=== PATIENT | female | born 1985 | race African-American/Black ===

== ENCOUNTER 2016-08-28 12:01 | Emergency (ER) | payer MEDICAID ==
[2016-08-28] MEDS ORDERED: ACETAMINOPHEN 325 MG TABLET PO ONE (13:09)
--- NOTE | 2016-08-28 15:13 | ER Document Report ---
ED General - General Chief Complaint: Cough Stated Complaint: CHEST PAIN Mode of Arrival: Ambulatory Information source: Patient Notes: 30 y/o F presents to the ED complaining of cough and congestion over the last 2 days. Patient states developed sore throat, cough, congestion 2 days ago. States sore throat has resolved but cough and congestion is persistent. States cough is productive with small amount of whitish sputum. Denies fever, chest pain, shortness of breath, nausea or vomiting. Patient reports her toddler niece had similar symptoms last week. Patient states is approximately 5 1/2 months up-to-date on visits, and denies pelvic pain or cramping, vaginal bleeding or discharge, dysuria or flank pain. TRAVEL OUTSIDE OF THE [place] IN LAST 30 DAYS: No - HPI Onset/Duration: Persistent Severity: Mild Pain Level: Denies Similar symptoms previously: Yes Recently seen / treated by doctor: No - Related Data Allergies/Adverse Reactions: No Known Allergies Allergy (Verified 08/28/16 12:11) Past Medical History - General Information source: Patient - Social History Smoking Status: Never Smoker Chew tobacco use (# tins/day): No Frequency of alcohol use: None Drug Abuse: None Lives with: Family Family History: Reviewed & Not Pertinent Patient has suicidal ideation: No Patient has homicidal ideation: No - Medical History Medical History: Negative Renal/ Medical History: Denies: Hx Peritoneal Dialysis Past Surgical History: Reports: Hx Dilation and Curettage, Hx Gynecologic Surgery - D&C - Immunizations Hx Diphtheria, Pertussis, Tetanus Vaccination: Yes Review of Systems - Review of Systems Constitutional: No symptoms reported EENT: See HPI Cardiovascular: No symptoms reported Respiratory: See HPI Gastrointestinal: No symptoms reported Genitourinary: No symptoms reported Female Genitourinary: No symptoms reported, See HPI, Musculoskeletal: No symptoms reported Skin: No symptoms reported Hematologic/Lymphatic: No symptoms reported Neurological/Psychological: No symptoms reported -: Yes All other systems reviewed and negative Physical Exam - Vital signs Vitals: Temp Pulse Resp BP Pulse Ox 98.8 F 115 H 20 113/50 L 98 08/28/16 12:08 08/28/16 12:08 08/28/16 12:08 08/28/16 12:08 08/28/16 12:08 Interpretation: Normal - General General appearance: Appears well, Alert In distress: None - HEENT Head: Normocephalic, Atraumatic Eyes: Normal Conjunctiva: Normal Pupils: PERRL Ears: Normal External canal: Normal Tympanic membrane: Normal. No: Injected, Perforation, Purulent effusion Sinus: Normal. No: Tenderness Nasal: Clear rhinorrhea. No: Epistaxis, Purulent discharge Mouth/Lips: Normal Mucous membranes: Normal, Moist Pharynx: Normal. No: Blood in hypopharynx, Erythema, Exudate, Peritonsillar abscess, Post nasal drainage, Retropharyngeal abscess, Tonsillar hypertrophy, Uvular edema, Potential airway comprom., Other Neck: Normal. No: Anterior cervical chain, Posterior cervical chain, Lymphadenopathy, Meningismus, Subcutaneous emphysema - Respiratory Respiratory status: No respiratory distress Chest status: Nontender Breath sounds: Normal Chest palpation: Normal - Cardiovascular Rhythm: Regular Heart sounds: Normal auscultation Murmur: No Pulses: Normal: Radial, Posterior tibial, Dorsalis pedis Normal capillary refill: Yes - Abdominal Inspection: Normal, Gravid female Distension: No distension Bowel sounds: Normal Tenderness: Nontender. No: Tender, McBurney's point, Navarro's sign, Guarding, Rebound, Other Organomegaly: No organomegaly - Back Back: Normal, Nontender - Extremities General upper extremity: Normal inspection, Nontender, Normal color, Normal ROM , Normal temperature General lower extremity: Normal inspection, Nontender, Normal color, Normal ROM , Normal temperature, Normal weight bearing. No: Ami's sign - Neurological Neuro grossly intact: Yes Cognition: Normal Orientation: AAOx4 [place] Coma Scale Eye Opening: Spontaneous [place] Coma Scale Verbal: Oriented Gabriella Coma Scale Motor: Obeys Commands Gabriella Coma Scale Total: 15 Speech: Normal Motor strength normal: LUE, RUE, LLE, RLE Sensory: Normal - Psychological Associated symptoms: Normal affect, Normal mood - Skin Skin Temperature: Warm Skin Moisture: Dry Skin Color: Normal Course - Re-evaluation Re-evalutation: 08/28/16 15:30 Patient hemodynamically stable, in no distress, afebrile, nontoxic, and appears well-hydrated. Tolerating oral fluids without difficulty or vomiting. Chest x- ray unremarkable and rapid influenza A/B negative. Patient appears so for discharge and no suggestion of emergent infectious, inflammatory, vascular etiology at this time and agrees with home care, follow-up with PCP, and ED return precautions. - Vital Signs Vital signs: Temp Pulse Resp BP Pulse Ox 98.6 F 69 20 107/58 L 99 08/28/16 15:37 08/28/16 15:37 08/28/16 15:37 08/28/16 15:37 08/28/16 15:37 - Diagnostic Test Radiology reviewed: Image reviewed, Reports reviewed Discharge - Discharge Clinical Impression: URI (upper respiratory infection) Qualifiers: URI type: unspecified URI Qualified Code(s): J06.9 - Acute upper respiratory infection, unspecified Condition: Stable Disposition: HOME, SELF-CARE Additional Instructions: UPPER RESPIRATORY ILLNESS: You have a viral infection of the respiratory passages -- a "cold." This common infection causes nasal congestion, drainage, and often sore throat and cough. It is highly contagious. The disease usually lasts about 10 to 14 days. There is no "cure" for the viral infection -- it must run its course. If there is a complication, such as bacterial infection in the nose, sinuses, middle ear, or bronchial tubes, antibiotics may be required. The antibiotics won't affect the virus. Drink plenty of fluids. A humidifier may help. An expectorant medication or decongestant may make you more comfortable. Use acetaminophen or ibuprofen for fever or aches. See the doctor if fever persists over two days, if there is any significant worsening of your symptoms, or if you simply fail to improve as expected. USE OF ACETAMINOPHEN (Tylenol): Acetaminophen may be taken for pain relief or fever control. It's much safer than aspirin, offering a wider range of "safe" dosages. It is safe during . Some brand names are Tylenol, Panadol, Datril, Anacin 3, Tempra, and Liquiprin. Acetaminophen can be repeated every four hours. The following are maximum recommended dosages: >89 pounds or adults 650 mg to 900 mg Acetaminophen can be repeated every four hours. Maximum dose not to exceed 4000 mg a day. Home self care: -Rest, hydration (8-10 glasses/day) -Steamy shower -Apply warm facial packs -Nasal saline irrigation lavage -Sleep with head elevated -Avoid cigarette smoke -Use of humidifier/vaporizer -Balanced nutrition FOLLOW-UP: Drink plenty of fluids, at least 2 to 3 liters of water per day. Follow-up with your primary care provider in 1-2 days. Return to the Emergency Department for any worsening symptoms or concerns. Forms: Return to Work Referrals: TRICIA HO MD [Primary Care Provider] - Follow up tomorrow
[2016-08-28 15:41] VITALS: BP 107/58
== END 2016-08-28 15:40 | disposition home or self-care (01) ==
LOC: ER 12:01
DX: O99.519 Diseases of the respiratory system complicating pregnancy, unspecified trimester (principal); J06.9 Acute upper respiratory infection, unspecified; J34.89 Other specified disorders of nose and nasal sinuses; O26.899 Other specified pregnancy related conditions, unspecified trimester; R05 Cough; Z3A.00 Weeks of gestation of pregnancy not specified
CPT/HCPCS: 99285; 87804; 71020; J3490

== ENCOUNTER 2016-10-08 09:40 | Outpatient (CLI) | payer MEDICAID ==
[2016-10-08 10:19] LABS: APPEARANCE,URINE CLEAR; BILIRUBIN,URINE NEGATIVE (NEGATIVE); GLUCOSE, URINE NEGATIVE (NEGATIVE); KETONES,URINE NEGATIVE (NEGATIVE); LEUKOCYTE ESTERASE,URINE NEGATIVE (NEGATIVE); NITRITE,URINE NEGATIVE (NEGATIVE); PROTEIN,URINE NEGATIVE (NEGATIVE); URINE SPECIFIC GRAVITY 1.009; UROBILINOGEN,URINE NEGATIVE mg/dL (<2.0)
[2016-10-08 10:37] LABS: URINE BARBITURATES SCREEN NEGATIVE; URINE OPIATES LOW NEGATIVE; URINE PHENCYCLIDINE SCREEN NEGATIVE
[2016-10-08 10:39] LABS: URINE METHADONE SCREEN NEGATIVE
--- NOTE | 2016-10-08 12:01 | L&D Flow Sheet ---
LD Flowsheet Datetime Report Generated by CPN: 10/08/2016 12:00 Datetime: 10/08/2016 11:07 NBP Sys/Cristy/Mean (mmHg): 94 (QS system process) : 55 (QS system process) : 69 (QS system process) Pulse: 90 (QS system process) Datetime: 10/08/2016 10:19 Pain Scale: 2 (Dolores Lin RN) Pain Presence: Intermittent (Dolores Lin RN) Pain Type: Cramping (Dolores Lin RN) Pain Location: Abdomen (Dolores Lin RN) Pain Goal: 0 (Dolores Lin RN) Vaginal Bleeding: Scant (Dolores Lin RN) Level of Consciousness: Fully Conscious (Dolores Lin RN) DTR's/Clonus: DTRs 2+; No Clonus (Dolores Lin RN) Headache: Denies (Dolores Lin RN) Breath Sounds, Left: Clear and Equal (Dolores Lin RN) Breath Sounds, Right: Clear and Equal (Dolores Lin RN) Nausea/Vomiting: Present (Dolores Lin RN) RUQ Epigastric Pain: Denies (Dolores Lin RN) Datetime: 10/08/2016 10:15 Temperature (F): 98.7 (Dolores Lin RN) Temperature (C): 37.1 (QS system process) Datetime: 10/08/2016 10:13 NBP Sys/Cristy/Mean (mmHg): 98 (QS system process) : 56 (QS system process) : 69 (QS system process) Pulse: 91 (QS system process) Patient Position/Activity: Left Lateral (Dolores Lin RN) Datetime: 10/08/2016 10:10 Comments: Monitors applied, explained to pt. (Dolores Lin RN)
== END 2016-10-08 12:45 | disposition home or self-care (01) ==
LOC: LC 09:40
PROVIDERS: ATTEND Obstetrics & Gynecology
PROC: 4A1HXCZ Monitoring of Products of Conception, Cardiac Rate, External Approach (ICD-10-PCS; principal; 2016-10-08)
DX: O47.02 False labor before 37 completed weeks of gestation, second trimester (principal); Z3A.26 26 weeks gestation of pregnancy
CPT/HCPCS: 76815; 80307; 81001

== ENCOUNTER 2017-01-10 16:11 | Inpatient (IN) | payer MEDICAID ==
[2017-01-10 16:49] LABS: APPEARANCE,URINE SLIGHTLY-CLOUDY; BILIRUBIN,URINE NEGATIVE (NEGATIVE); GLUCOSE, URINE NEGATIVE (NEGATIVE); KETONES,URINE NEGATIVE (NEGATIVE); LEUKOCYTE ESTERASE,URINE NEGATIVE (NEGATIVE); NITRITE,URINE NEGATIVE (NEGATIVE); PROTEIN,URINE NEGATIVE (NEGATIVE); URINE SPECIFIC GRAVITY 1.008; UROBILINOGEN,URINE NEGATIVE mg/dL (<2.0)
[2017-01-10 16:53] LABS: AMNISURE (ROM) NEGATIVE (NEGATIVE)
[2017-01-10 17:06] LABS: URINE BARBITURATES SCREEN NEGATIVE; URINE METHADONE SCREEN NEGATIVE; URINE OPIATES LOW NEGATIVE; URINE PHENCYCLIDINE SCREEN NEGATIVE
[2017-01-10] MEDS ORDERED: RINGERS SOLUTION,LACTATED 1,000 ML IV PRN (17:31)
[2017-01-10] MEDS ORDERED: OXYTOCIN/NORMAL SALINE 1,000 ML IV PRN (17:31)
[2017-01-10] MEDS ORDERED: RINGERS SOLUTION,LACTATED 300 ML IV ONE (17:31)
[2017-01-10] MEDS ORDERED: LIDOCAINE 1% INJ-PF (10 MG/ML) 30 ML SDV ONE (17:56)
[2017-01-10] MEDS ORDERED: MISOPROSTOL 0.2 MG TABLET ONE (17:56)
[2017-01-10] MEDS ORDERED: OXYTOCIN/NORMAL SALINE 20 UNIT/1,000 ML RTUINJ ONE (17:57)
[2017-01-10 18:05] LABS: ABSOLUTE BASOPHILS # (AUTO) 0.1 10^3/uL (0.0-0.2); ABSOLUTE EOSINOPHILS # (AUTO) 0.2 10^3/uL (0.0-0.6); ABSOLUTE LYMPHOCYTES (AUTO) 2.4 10^3/uL (0.5-4.7); ABSOLUTE MONOCYTES (AUTO) 0.9 10^3/uL (0.1-1.4); ABSOLUTE NEUT (AUTO) 8.9 10^3/uL (1.7-8.2); BASOPHILS % (AUTO) 0.5 % (0-2); EOSINOPHILS % (AUTO) 1.4 % (0-6); HEMATOCRIT 27.3 % (36.0-47.0); HEMOGLOBIN 8.8 g/dL (12.0-15.5); HGB HCT DIFFERENCE -0.9; LYMPHOCYTES % (AUTO) 19.3 % (13-45); MEAN CORPUSCULAR HGB CONC 32.1 g/dL (32.0-36.0); MEAN CORPUSCULAR VOLUME 72 fl (80-97); MONOCYTES % (AUTO) 7.6 % (3-13); RED BLOOD COUNT 3.81 10^6/uL (3.72-5.28); RED CELL DISTRIBUTION WIDTH 16.8 % (11.5-14.0); SEGMENTED NEUTROPHILS % (AUTO) 71.2 % (42-78); WHITE BLOOD COUNT 12.5 10^3/uL (4.0-10.5)
[2017-01-11] MEDS ORDERED: ACETAMINOPHEN 650 MG SUPP.RECT PR PRN (06:26)
[2017-01-11] MEDS ORDERED: PROMETHAZINE HCL 25 MG TABLET PO PRN (06:26)
[2017-01-11] MEDS ORDERED: OXYTOCIN/NORMAL SALINE 1,000 ML IV PRN (06:26)
[2017-01-11] MEDS ORDERED: MAGNESIUM HYDROXIDE SUSP 30 ML UDCUP PO PRN (06:26)
[2017-01-11] MEDS ORDERED: MEASLES,MUMPS&RUBELLA VACC/PF 0.5 ML VIAL SUBCUT PRN (06:26)
[2017-01-11] MEDS ORDERED: BENZOCAINE/MENTHOL AEROSOL SPRAY 56 ML TOP PRN (06:26)
[2017-01-11] MEDS ORDERED: DIPHENHYDRAMINE HCL 25 MG CAPSULE PO PRN (06:26)
[2017-01-11] MEDS ORDERED: DIPH/PERTUSS(ACELL)/TETANUS VAC/PF 0.5 ML SYR (>=10YO) IM PRN (06:26)
[2017-01-11] MEDS ORDERED: DIBUCAINE 1% OINTMENT 28 GM TP PRN (06:26)
[2017-01-11] MEDS ORDERED: ACETAMINOPHEN WITH CODEINE #3 TABLET PO PRN ×2 (06:26)
[2017-01-11] MEDS ORDERED: PROMETHAZINE HCL INJ 25 MG/1 ML VIAL IV PRN (06:26)
[2017-01-11] MEDS ORDERED: NA PHOS,M-B/NA PHOS,DI-BA (ADULT) 133 ML ENEMA PR PRN (06:26)
[2017-01-11] MEDS ORDERED: PROMETHAZINE HCL 25 MG SUPP.RECT PR PRN (06:26)
[2017-01-11] MEDS ORDERED: ZOLPIDEM TARTRATE 5 MG TABLET PO PRN (06:26)
[2017-01-11] MEDS ORDERED: PSEUDOEPHEDRINE HCL 30 MG TABLET PO PRN (06:26)
[2017-01-11] MEDS ORDERED: GLYCERIN/WITCH HAZEL LEAF 1 EACH MED..PAD TP PRN (06:26)
[2017-01-11] MEDS ORDERED: MISOPROSTOL 0.2 MG TABLET PR PRN (06:26)
[2017-01-11] MEDS ORDERED: OXYTOCIN/NORMAL SALINE 20 UNIT/1,000 ML RTUINJ ONE (07:21)
[2017-01-11] MEDS: IBUPROFEN 800 MG TABLET PO SCH ×2 (07:56→22:01)
[2017-01-11] MEDS ORDERED: IBUPROFEN 800 MG TABLET ONE (07:58)
[2017-01-11] MEDS ORDERED: CEFAZOLIN 2 GM/D5W RTU 2 GM/50 ML RTUPB IV ONE (08:55)
[2017-01-11] MEDS ORDERED: CEFAZOLIN 2 GM/D5W RTU 50 ML IV ONE (08:56)
--- NOTE | 2017-01-11 09:07 | Admission Physical ---
Datetime Report Generated by CPN: 01/11/2017 09:07 CURRENT ADMISSION Chief Complaint: Other Indication for Induction: Oligohydramnios Admit Impression- Other: RUSSEL of 5 cm Admit Plan: Admit to Unit; Initiate Labor Induction Protocol ALLERGIES Medication Allergies: No Medication Allergies: No Known Allergies (01/10/2017) Medication Allergies: No Known Allergies (08/28/2016) Medication Allergies: No Known Allergies (06/24/2016) Medication Allergies: No Known Allergies (01/31/2011) Latex: No Latex Allergies Food Allergies: None Environmental Allergies: None OBSTETRICAL HISTORY EDC: 01/09/2017 00:00 : 7 Para: 4 Term: 3 : 1 SAB: 2 IAB: 0 Ectopic: 0 Livin Cesareans: 0 VBACs: 0 Multiple Births: 0 Gestational Diabetes: No Rh Sensitization: No Incompetent Cervix: No ELDA: No Infertility: No ART Treatment: No Uterine Anomaly: No IUGR: No Hx Previous C/S: No Macrosomia: No Hx Loss/Stillborn: No PIH: No Hx : No Placenta Previa/Abruption: No Depression/PP Depression: No PTL/PROM: Yes Post Hemorrhage: No Current Procedures: Ultrasound; NST Obstetrical History Comments: G1 - at 33 weeks, PTL (2002) G2 - at 39 weeks, (2005) G3 - SAB at 12 weeks (2007) G4 - at 39 weeks (2009) G5 - at 41 weeks (2010) G6 - SAB at 13 weeks (2015) G7 - current SEE RECORDS Alcohol: No Marijuana : No Cocaine: No Other Illicit Drugs: No Cigarettes: Former Smoker. [id number] MEDICAL HISTORY Diabetes: No Blood Transfusion: No Pulmonary Disease (Asthma, TB): No Breast Disease: No Hypertension: No Plastics Fitter Surgery: No Heart Disease: No Hosp/Surgery: Yes Autoimmune Disorder: No Anesthetic Complications: No Kidney Disease: No Abnormal Pap Smear: No Neuro/Epilepsy: No Psychiatric Disorders: No Other Medical Diseases: Yes Hepatitis/Liver Disease: No Significant Family History: No Varicosities/Phlebitis: No Trauma/Violence : No Thyroid Dysfunction: No Medical History Comments: D_C in 2007, sickle cell trait INFECTIOUS HISTORY Gonorrhea: No Genital Herpes: No Chlamydia: No Tuberculosis: No Syphilis: No Hepatitis: No HIV/AIDS Exposure: No Rash or Viral Illness: No HPV: No PHYSICAL EXAM General: Normal HEENT: Normal Neurologic: Normal Thyroid: Normal Heart: Normal Lungs: Normal Breast: Deferred Back: Normal Abdomen: Normal Genitourinary Exam: Normal Extremities: Normal DTRs: Normal Pelvic Type: Adequate Vital Signs: Reviewed VAGINAL EXAM Dilatation: 4 Effacement: 80 Station: 0 MEMBRANES Pooling: Negative Membranes: Intact FETUS A EGA: 40.1 Monitoring: External US FHR- Baseline: 160 Variability: Minimal - Undetectable to <=5bpm Decelerations: None Presentation- Other: vtx Admit Comment: options considered. the pt preferred delivery. PLANS FOR LABOR AND DELIVERY Labor and Delivery: None Pain Management: Natural Feeding Preference: Breast Benefit of Breast Feed Discussed: Yes Circumcision: Yes INFORMED CONSENT Signature: with User ID: [email or web address]
[2017-01-11] MEDS: FAMOTIDINE 20 MG TABLET PO SCH ×2 (09:44→22:01)
[2017-01-11] MEDS: DOCUSATE SODIUM 100 MG CAPSULE PO SCH ×2 (09:44→18:24)
[2017-01-11] MEDS: FERROUS SULFATE 325 MG TABLET PO SCH ×2 (09:45→18:24)
[2017-01-11] MEDS: PRENATAL VITAMIN W-O CA NO5/FE FUMARATE/FA CAPSULE PO SCH (09:45)
[2017-01-11] MEDS: SENNOSIDES/DOCUSATE 8.6-50 MG 1 EACH TABLET PO SCH (09:45)
[2017-01-12] MEDS: IBUPROFEN 800 MG TABLET PO SCH ×3 (05:09→21:22)
[2017-01-12 07:05] LABS: HEMATOCRIT 24.4 % (36.0-47.0); HEMOGLOBIN 8.2 g/dL (12.0-15.5); HGB HCT DIFFERENCE 0.2; MEAN CORPUSCULAR HEMOGLOBIN 23.9 pg (27.0-33.4); MEAN CORPUSCULAR HGB CONC 33.4 g/dL (32.0-36.0); MEAN CORPUSCULAR VOLUME 72 fl (80-97); RED BLOOD COUNT 3.42 10^6/uL (3.72-5.28); RED CELL DISTRIBUTION WIDTH 16.9 % (11.5-14.0); WHITE BLOOD COUNT 12.7 10^3/uL (4.0-10.5)
[2017-01-12] MEDS: FERROUS SULFATE 325 MG TABLET PO SCH ×2 (09:11→17:59)
[2017-01-12] MEDS: SENNOSIDES/DOCUSATE 8.6-50 MG 1 EACH TABLET PO SCH (09:11)
[2017-01-12] MEDS: PRENATAL VITAMIN W-O CA NO5/FE FUMARATE/FA CAPSULE PO SCH (09:11)
[2017-01-12] MEDS: FAMOTIDINE 20 MG TABLET PO SCH ×2 (09:11→21:21)
[2017-01-12] MEDS: DOCUSATE SODIUM 100 MG CAPSULE PO SCH ×2 (09:11→17:59)
--- NOTE | 2017-01-12 12:33 | PDOC PROGRESS REPORT ---
Subjective-OB Subjective: Post Delivery Day:1 31 year old s/p ppd1. Ambulating, voiding and without difficulty. Denies any needs at this time Physical Exam (OB) Vital Signs: Temp Pulse Resp BP Pulse Ox 98.2 F 75 16 111/63 100 01/12/17 08:07 01/12/17 08:07 01/12/17 08:07 01/12/17 08:07 01/12/17 08:07 Intake & Output 01/11/17 01/12/17 01/13/17 06:59 06:59 06:59 Weight 91.3 kg - General General Appearance: Appears well In distress: None - PIH/Pre-Eclampsia Clonus: Negative - Episiotomy/Laceration Site Condition: Well Approximated - Lochia Lochia Amount: Small 10-25 ml Lochia Color: Rubra/Red - Abdomen Hernia Present: No Fundal Description: Firm, Midline Fundal Height: u/u - u/2 - Respiratory Respiratory Status: No respiratory distress - Extremities Upper extremity: Normal inspection Lower extremities: Normal inspection - Psychological Associated symptoms: Normal affect, Normal mood - bonding well with baby Objective-Diagnostic Laboratory: 01/12/17 06:39 01/12/17 06:39 WBC 12.7 H RBC 3.42 L Hgb 8.2 L Hct 24.4 L MCV 72 L MCH 23.9 L MCHC 33.4 RDW 16.9 H Plt Count 316 Assessment and Plan(PN) - Assessment and Plan (1) Vaginal delivery Is this a current diagnosis for this admission?: YesPlan: continue stay (2) Anemia Qualifiers: Other causes of anemia: other cause, not classified Is this a current diagnosis for this admission?: YesPlan: iron supplementation - Time Spent with Patient Time with patient: 15-25 minutes Medications reviewed and adjusted accordingly: Yes - Disposition Anticipated Discharge: Home Within: within 24 hours
[2017-01-13] MEDS: IBUPROFEN 800 MG TABLET PO SCH ×2 (05:38→13:37)
[2017-01-13] MEDS: DOCUSATE SODIUM 100 MG CAPSULE PO SCH (09:47)
[2017-01-13] MEDS: PRENATAL VITAMIN W-O CA NO5/FE FUMARATE/FA CAPSULE PO SCH (09:47)
[2017-01-13] MEDS: FAMOTIDINE 20 MG TABLET PO SCH (09:47)
[2017-01-13] MEDS: SENNOSIDES/DOCUSATE 8.6-50 MG 1 EACH TABLET PO SCH (09:47)
[2017-01-13] MEDS: FERROUS SULFATE 325 MG TABLET PO SCH (09:47)
--- NOTE | 2017-01-13 10:13 | PDOC DISCHARGE SUMMARY ---
Final Diagnosis Discharge Date: 01/13/17 - Final Diagnosis (1) Anemia Is this a current diagnosis for this admission?: Yes (2) Vaginal delivery Is this a current diagnosis for this admission?: Yes Discharge Data - Discharge Medication Home Medications: Pnv with Ca,No.72/Iron/FA [Pnv Plus Multivit Tab] 1 tab PO DAILY Docusate Sodium [Colace 100 mg Capsule] 100 mg PO BID #60 capsule 01/13/17 Ferrous Sulfate [Feosol 325 mg Tablet] 325 mg PO BID #60 tablet 01/13/17 Ibuprofen [Motrin 800 mg Tablet] 800 mg PO Q8 #60 tablet 01/13/17 Gestational Age: 40 Reason(s) for Admission: Induction of Labor Procedures: NST Intrapartum Procedure(s): Spontaneous Vaginal Delivery Complication(s): Laceration-Perineal Laceration-Degree: 1st - Data Baby 1 Male Home with Mother: No Complications: Yes - oligo, maternal temp - Diagnosis Test Laboratory: Temp Pulse Resp BP Pulse Ox 98.3 F 67 16 121/67 100 01/13/17 08:09 01/13/17 08:09 01/13/17 08:09 01/13/17 08:09 01/13/17 08:09 01/10/17 01/10/17 01/12/17 16:20 17:40 06:39 RBC 3.81 3.42 L Hgb 8.8 L 8.2 L Hct 27.3 L 24.4 L Urine Opiates Screen NEGATIVE - Discharge information/Instructions Discharge Activity: Activity As Tolerated, Pelvic Rest, No tub bath Discharge Diet: Regular Disposition: HOME, SELF-CARE Follow up with: [facility] in: 4, Weeks
[2017-01-13 11:48] VITALS: BP 120/70
--- NOTE | 2017-01-23 13:46 | Delivery Summary ---
Del Sum A-C Datetime Report Generated by CPN: 01/23/2017 13:45 DELIVERY PERSONNEL DELIVERY PERSONNEL: [phone] Delivery Doctor:: Edouard Hou MD Labor and Delivery Nurse:: Nidia Moore RNcorporate claims examiner Nurse:: Lauren Ware RN Ferryboat Operator Helper:: Annamaria Adams RN Canned Food Reconditioning Inspector/AUDIOVISUAL LIBRARIAN: Tiff Somers CNA MATERNAL INFORMATION Delivery Anesthesia: Local Medications After Delivery: Pitocin Drip 20 Units/1000ml NSS Estimated Blood Loss (ml): 250 Maternal Complications: None LABOR SUMMARY EDC: 01/09/2017 00:00 No. Babies in Womb: 1 Attempted: No Labor Anesthesia: None LABOR INFORMATION Reason for Induction: Oligohydramnios; Other Onset of Labor: 01/11/2017 03:04 Complete Dilatation: 01/11/2017 05:52 Oxytocin: Induction Group B Beta Strep: negative Antibiotics # of Doses: 0 Steroids Given: None Reason Steroids Not Administered: Not Applicable MEMBRANES Membranes Rupture Method: Artificial Rupture of Membranes: 01/11/2017 04:33 Length of Rupture (hr): 1.68 Amniotic Fluid Color: Clear Amniotic Fluid Amount: Small Amniotic Fluid Odor: Normal STAGES OF LABOR Stage 1 hr: 2 Stage 1 min: 48 Stage 2 hr: 0 Stage 2 min: 22 VAGINAL DELIVERY Episiotomy: None Laceration Extension: First Degree Laceration Type: Perineal Laceration Repair: Yes Laceration Repair Note: repair with 3-0 chromic suture times one Sponge Count Correct: Yes; Vaginal Sweep Performed Sharps Count Correct: Yes CSECTION DELIVERY Primary Indication: N/A Secondary Indication: N/A CSection Incidence: N/A Labor: N/A Elective: N/A CSection Incision: N/A BABY A INFORMATION Infant Delivery Date/Time: 01/11/2017 06:14 Method of Delivery: Vaginal Born in Route : No : N/A Forceps: N/A Vacuum Extraction: N/A Shoulder Dystocia : Yes SHOULDER DYSTOCIA BABY A Delivery of Head: 01/11/2017 06:12 Time Head to Delivery : 2.0 1st Intervention to Resolve: McRobert's Maneuver 2nd Intervention to Resolve: Suprapubic Pressure Verify NO Fundal Pressure: No Fundal Pressure Applied Arm Under Symphisis at Del: Right Shoulder Dystocia Comments: 1 min 25 sec. No tension placed on head. PRESENTATION/POSITION BABY A Presentation: Cephalic Cephalic Presentation: Vertex Vertex Position: Right Occipital Anterior Breech Presentation: N/A PLACENTA INFORMATION BABY A Placenta Method of Delivery: Spontaneous Placenta Status: Delivered SCORES BABY A Heart Rate 1 min: >100 bpm Resp Effort 1 min: Slow, Irregular Reflex Irritability 1 min: Cough or Sneeze or Pulls Away Muscle Tone 1 min: Some Flexion of Extremities Color 1 min: Body [place], Extremities Blue Resuscitation Effort 1 min: Tactile Stimulation; Oxygen SCORE 1 MIN: 7 Heart Rate 5 min: >100 bpm Resp Effort 5 min: Good Cry Reflex Irritability 5 min: Cough or Sneeze or Pulls Away Muscle Tone 5 min: Active Motion Color 5 min: Body [place], Extremities Blue Resuscitation Effort 5 min: Tactile Stimulation SCORE 5 MIN: 9 INFANT INFORMATION BABY A Gestational Age at Delivery: 40.2 Gestational Status: Full Term- 39- 40.6 Weeks Outcome : Liveborn Infant Condition : Stable Infant Sex: Male IDENTIFICATION BABY A Infant Verification Date/Time: 01/11/2017 06:28 ID Band Number: [id number] Mother's Name Verified: Yes RN Verifying : S. Cristytibdamiánir, RN _ O. Gen, RN WEIGHT/LENGTH BABY A Birthweight (gm): 4230 Weight (lb): 9 Infant Weight (oz): 5 Length (in): 21.00 Length (cm): 53.34 CORD INFORMATION BABY A No. Cord Vessels: 3 Nuchal Cord : Around Neck x1, Loose Cord Blood Taken: Yes-For Eval (Mom's Blood Type - or O+) Suction: None ASSESSMENT BABY A Complications: None Physical Findings at Delivery: Within Normal Limits Skin to Skin: Yes Skin to Skin Time (min): 100 Transferred To: Remains with Mother BABY B INFORMATION : N/A SIGNATURES Signature: with User ID: [email or web address]
== END 2017-01-13 13:46 | disposition home or self-care (01) | DRG 775 ==
LOC: LC 16:11 → LR 17:27 → 2S 01-11 09:00
PROVIDERS: ADMIT Obstetrics & Gynecology; ATTEND Obstetrics & Gynecology
PROC: 3E033VJ Introduction of Other Hormone into Peripheral Vein, Percutaneous Approach (ICD-10-PCS; 2017-01-10)
PROC: 4A1HXCZ Monitoring of Products of Conception, Cardiac Rate, External Approach (ICD-10-PCS; 2017-01-10)
PROC: 10E0XZZ Delivery of Products of Conception, External Approach (ICD-10-PCS; principal; 2017-01-11)
PROC: 0HQ9XZZ Repair Perineum Skin, External Approach (ICD-10-PCS; 2017-01-11)
PROC: 10907ZC Drainage of Amniotic Fluid, Therapeutic from Products of Conception, Via Natural or Artificial Opening (ICD-10-PCS; 2017-01-11)
DX: O41.03X0 Oligohydramnios, third trimester, not applicable or unspecified (principal); O99.02 Anemia complicating childbirth; D64.9 Anemia, unspecified; O70.0 First degree perineal laceration during delivery; D57.3 Sickle-cell trait; Z87.891 Personal history of nicotine dependence; Z3A.40 40 weeks gestation of pregnancy; Z37.0 Single live birth
CPT/HCPCS: 36415; 59025; 80307; 81005; 84112; 85025; 85027; 86592; 86850; 86900; 86901; J0690; J2590; J3490

== ENCOUNTER 2018-10-08 04:41 | Emergency (ER) | payer MEDICAID ==
--- NOTE | 2018-10-08 06:30 | RADIOLOGY REPORT (SQ) ---
EXAM DESCRIPTION: XR CHEST 2 VIEWS COMPLETED DATE/TME: 10/08/2018 00:00 CLINICAL HISTORY: 33 years, Female, persistent cough Comparison: None FINDINGS: No focal lung consolidation. No pleural effusion. No pneumothorax. Cardiac and mediastinal silhouette is unremarkable. No acute osseous abnormality. Soft tissues are unremarkable. IMPRESSION: No acute findings. No focal lung consolidation.
--- NOTE | 2018-10-08 07:12 | ER Document Report ---
ED General - General Chief Complaint: Cough Stated Complaint: COUGH Time Seen by Provider: 10/08/18 06:49 TRAVEL OUTSIDE OF THE [place] IN LAST 30 DAYS: No - HPI Notes: Patient presents to the emergency department for evaluation of cough and nasal congestion. She states she has been dealing with the symptoms for nearly 2 months. It all started when she first got ill around . She states that it was a virus. She did have a minimal improvement after approximately 2 weeks, but things have gotten worse since then. She continues to cough up thick mucus. She has a headache from coughing. She has pain across the anterior aspect of her chest that she describes as a soreness. It is worsened with coughing. She denies any shortness of breath. She states she has had intermittent times when she coughs up streaks of blood mixed with mucus. She denies feeling short of breath. She does complain of fatigue and malaise. Her immunizations are up-to-date, no abnormal travel. - Related Data Allergies/Adverse Reactions: No Known Allergies Allergy (Verified 10/08/18 06:26) Past Medical History - General Information source: Patient - Social History Smoking Status: Former Smoker Frequency of alcohol use: None Drug Abuse: None Family History: Reviewed & Not Pertinent Patient has suicidal ideation: No Patient has homicidal ideation: No Renal/ Medical History: Denies: Hx Peritoneal Dialysis Past Surgical History: Reports: Hx Dilation and Curettage, Hx Gynecologic Surgery - D&C - Immunizations Hx Diphtheria, Pertussis, Tetanus Vaccination: Yes Review of Systems - Review of Systems Constitutional: Fever - Early in illness, no fevers for the last 4 weeks, Malaise EENT: Nose congestion, Nose discharge, Sinus pressure, Sinus discharge Cardiovascular: Chest pain Respiratory: Cough, Hemoptysis Gastrointestinal: No symptoms reported Musculoskeletal: No symptoms reported Skin: No symptoms reported Neurological/Psychological: No symptoms reported Physical Exam - Vital signs Vitals: Temp Pulse Resp BP Pulse Ox 99.5 F 92 17 131/88 H 98 10/08/18 04:50 10/08/18 04:50 10/08/18 04:50 10/08/18 04:50 10/08/18 04:50 Interpretation: Hypertensive - Notes Notes: Vital signs reviewed, please refer to chart. Patient is normocephalic, atraumatic. Pupils equal round, reactive to light. Tender to palpation over bilateral maxillary sinuses, right greater than left. No frontal sinus or ethmoidal sinus tenderness. Posterior pharynx reveals significant cobblestoning. Neck is supple without meningismus. Heart is regular rate and rhythm. Lungs are clear to auscultation bilaterally. Abdomen is soft, nontender, normoactive bowel sounds throughout. Extremities without cyanosis, clubbing, edema. Peripheral pulses are equal. Skin is warm and dry. Patient is awake, alert, neurological exam is nonfocal. Course - Re-evaluation Re-evalutation: 10/08/18 07:08 Patient presents to the emergency department for evaluation. Her symptoms of lasted nearly 2 months. Her physical exam is most consistent with sinusitis. Her chest x-ray was ordered, found to be negative as per radiology. Patient currently does not have any prescription coverage. We will write her an antibiotic and referral on to primary care. She is to stay hydrated. She is told to take hoqe-pnj-plocubs Robitussin/guaifenesin for cough, ibuprofen as needed for pain. She is to return to the emergency department with worsening or new concerning symptoms of any sort. - Vital Signs Vital signs: Temp Pulse Resp BP Pulse Ox 99.5 F 92 17 131/88 H 98 10/08/18 04:50 10/08/18 04:50 10/08/18 04:50 10/08/18 04:50 10/08/18 04:50 - Diagnostic Test Radiology reviewed: Reports reviewed - No acute cardiopulmonary disease Discharge - Discharge Clinical Impression: Acute sinusitis Qualifiers: Sinusitis location: maxillary Condition: Stable Disposition: HOME, SELF-CARE Instructions: Sinusitis (OM) Additional Instructions: Rest, stay well-hydrated. Saline nasal rinses may help with nasal congestion. Take all the antibiotic as prescribed until gone. Mers-jyj-tjytwrp cough medicines and ibuprofen as discussed for symptoms. Follow-up with primary care in 1-2 weeks. Return to the emergency department with worsening or new concerning symptoms.
[2018-10-08 07:24] VITALS: BP 119/87
== END 2018-10-08 07:24 | disposition home or self-care (01) ==
LOC: ER 04:41
DX: J01.00 Acute maxillary sinusitis, unspecified (principal); R05 Cough; R09.81 Nasal congestion
CPT/HCPCS: 71046; 99283

== ENCOUNTER 2019-03-05 10:15 | Emergency (ER) | payer SELFPAY ==
--- NOTE | 2019-03-05 10:32 | ER Document Report ---
ED Medical Screen (RME) - General Chief Complaint: Abdominal Cramping Stated Complaint: VAGINAL BLEEDING Time Seen by Provider: 03/05/19 10:25 Mode of Arrival: Ambulatory Information source: Patient Notes: Patient is a 33-year-old female G7, P5 who presents to the ER today for 3 weeks of vaginal bleeding, worsening now with quarter size clots over the past week. Patient does have the Lyla IUD in place for the past 2 years and states she is never had any issues like this before. She admits that the pelvic pain has worsened significantly and that is why she came in today. She has not taken any test to see if she was . TRAVEL OUTSIDE OF THE [place] IN LAST 30 DAYS: No - Related Data Allergies/Adverse Reactions: No Known Allergies Allergy (Verified 03/05/19 10:16) Past Medical History - General Information source: Patient Renal/ Medical History: Denies: Hx Peritoneal Dialysis Past Surgical History: Reports: Hx Dilation and Curettage, Hx Gynecologic Surgery - D&C - Immunizations Hx Diphtheria, Pertussis, Tetanus Vaccination: Yes Review of Systems - Review of Systems Female Genitourinary: See HPI Physical Exam - Vital signs Vitals: Temp Pulse Resp BP Pulse Ox 98.9 F 81 14 141/91 H 98 03/05/19 10:19 03/05/19 10:03/05/19 10:03/05/19 10:03/05/19 10:19 - Notes Notes: PHYSICAL EXAMINATION: GENERAL: Well-appearing and in no acute distress. ABDOMEN: Soft, suprapubic tenderness. No guarding, no rebound Course - Vital Signs Vital signs: Temp Pulse Resp BP Pulse Ox 98.9 F 81 14 141/91 H 98 03/05/19 10:19 03/05/19 10:19 03/05/19 10:03/05/19 10:03/05/19 10:19
[2019-03-05 10:54] LABS: ABSOLUTE BASOPHILS # (AUTO) 0.1 10^3/uL (0.0-0.2); ABSOLUTE EOSINOPHILS # (AUTO) 0.4 10^3/uL (0.0-0.6); ABSOLUTE LYMPHOCYTES (AUTO) 2.8 10^3/uL (0.5-4.7); ABSOLUTE MONOCYTES (AUTO) 0.5 10^3/uL (0.1-1.4); ABSOLUTE NEUT (AUTO) 6.8 10^3/uL (1.7-8.2); BASOPHILS % (AUTO) 0.9 % (0-2); EOSINOPHILS % (AUTO) 3.3 % (0-6); HEMATOCRIT 38.9 % (36.0-47.0); HEMOGLOBIN 13.2 g/dL (12.0-15.5); LYMPHOCYTES % (AUTO) 26.8 % (13-45); MEAN CORPUSCULAR HEMOGLOBIN 26.2 pg (27.0-33.4); MEAN CORPUSCULAR HGB CONC 33.9 g/dL (32.0-36.0); MEAN CORPUSCULAR VOLUME 77 fl (80-97); MONOCYTES % (AUTO) 4.8 % (3-13); PLATELET COUNT 392 10^3/uL (150-450); RED BLOOD COUNT 5.03 10^6/uL (3.72-5.28); RED CELL DISTRIBUTION WIDTH 13.1 % (11.5-14.0); SEGMENTED NEUTROPHILS % (AUTO) 64.2 % (42-78); TOTAL CELLS COUNTED % (AUTO) 100 %; WHITE BLOOD COUNT 10.6 10^3/uL (4.0-10.5)
--- NOTE | 2019-03-05 11:02 | ER Document Report ---
ED GI/ - General Chief Complaint: Abdominal Cramping Stated Complaint: VAGINAL BLEEDING Time Seen by Provider: 03/05/19 10:25 Mode of Arrival: Ambulatory Information source: Patient Notes: Patient is a 33-year-old female G7, P5 who presents to the ER today for 3 weeks of vaginal bleeding, worsening now with quarter size clots over the past week. Patient does have the Lyla IUD in place for the past 2 years and states she is never had any issues like this before. She admits that the pelvic pain has worsened significantly and that is why she came in today. She has not taken any test to see if she was . TRAVEL OUTSIDE OF THE [place] IN LAST 30 DAYS: No - Related Data Allergies/Adverse Reactions: No Known Allergies Allergy (Verified 03/05/19 10:16) Past Medical History - General Information source: Patient - Social History Smoking Status: Never Smoker Chew tobacco use (# tins/day): No Frequency of alcohol use: Occasional Drug Abuse: None Family History: Reviewed & Not Pertinent Patient has suicidal ideation: No Patient has homicidal ideation: No Renal/ Medical History: Denies: Hx Peritoneal Dialysis Past Surgical History: Reports: Hx Dilation and Curettage, Hx Gynecologic Surgery - D&C - Immunizations Hx Diphtheria, Pertussis, Tetanus Vaccination: Yes Review of Systems - Review of Systems Constitutional: No symptoms reported EENT: No symptoms reported Cardiovascular: No symptoms reported Respiratory: No symptoms reported Gastrointestinal: No symptoms reported Genitourinary: No symptoms reported Female Genitourinary: See HPI Musculoskeletal: No symptoms reported Skin: No symptoms reported Hematologic/Lymphatic: No symptoms reported Neurological/Psychological: No symptoms reported Physical Exam - Vital signs Vitals: Temp Pulse Resp BP Pulse Ox 98.9 F 81 14 141/91 H 98 03/05/19 10:19 03/05/19 10:19 03/05/19 10:19 03/05/19 10:19 03/05/19 10:19 - Notes Notes: PHYSICAL EXAMINATION: GENERAL: Well-appearing and in no acute distress. HEAD: Atraumatic, normocephalic. EYES: Pupils equal round and reactive to light, extraocular movements intact, sclera anicteric, conjunctiva are normal. NECK: Normal range of motion, supple without lymphadenopathy LUNGS: CTAB and equal. No wheezes rales or rhonchi. HEART: Regular rate and rhythm without murmurs ABDOMEN: Soft, suprapubic tenderness. No guarding, no rebound BACK: no vertebral tenderness, normal ROM GI/: no CVA tenderness EXTREMITIES: Normal range of motion, no pitting edema. No cyanosis. NEUROLOGICAL: Cranial nerves grossly intact. Normal sensory/motor exams. PSYCH: Normal mood, normal affect. SKIN: Warm, Dry, normal turgor, no rashes or lesions noted Course - Re-evaluation Re-evalutation: 03/05/19 21:06 Urinalysis indicative of infection, ultrasound reveals bilateral ovarian cysts, no other acute pathology, patient placed on medroxyprogesterone, given Keflex and Motrin. - Vital Signs Vital signs: Temp Pulse Resp BP Pulse Ox 98.2 F 63 14 148/96 H 100 03/05/19 15:01 03/05/19 15:01 03/05/19 15:01 03/05/19 15:01 03/05/19 15:01 - Laboratory Result Diagrams: 03/05/19 10:44 03/05/19 10:44 Laboratory results interpreted by me: 03/05/19 03/05/19 10:44 10:44 WBC 10.6 H MCV 77 L MCH 26.2 L Urine Blood SMALL H Ur Leukocyte Esterase MODERATE H Discharge - Discharge Clinical Impression: Vaginal bleeding Ovarian cyst Qualifiers: Laterality: bilateral Qualified Code(s): N83.201 - Unspecified ovarian cyst, right side UTI (urinary tract infection) Qualifiers: Urinary tract infection type: acute cystitis Hematuria presence: without hematuria Qualified Code(s): N30.00 - Acute cystitis without hematuria Condition: Stable Disposition: HOME, SELF-CARE Instructions: Ovarian Cyst ([facility]), Vaginal Bleeding ([facility]) Additional Instructions: Return immediately for any new or worsening symptoms. Follow up with obgyn, call tomorrow to make followup appointment. Prescriptions: Cephalexin Monohydrate [Keflex 500 mg Capsule] 500 mg PO BID 5 Days capsule Ibuprofen [Motrin 800 mg Tablet] 800 mg PO Q8H PRN #30 tab PRN Reason: Medroxyprogesterone Acetate [Provera] 10 mg PO DAILY #10 tablet Forms: Return to Work
[2019-03-05 11:18] LABS: APPEARANCE,URINE SLIGHTLY-CLOUDY; BILIRUBIN,URINE NEGATIVE (NEGATIVE); COLOR,URINE YELLOW; GLUCOSE, URINE NEGATIVE (NEGATIVE); KETONES,URINE NEGATIVE (NEGATIVE); LEUKOCYTE ESTERASE,URINE MODERATE (NEGATIVE); NITRITE,URINE NEGATIVE (NEGATIVE); PROTEIN,URINE NEGATIVE (NEGATIVE); URINE SPECIFIC GRAVITY 1.016; UROBILINOGEN,URINE NEGATIVE mg/dL (<2.0)
[2019-03-05 11:20] LABS: ALANINE AMINOTRANSFERASE 19 U/L (9-52); ALBUMIN 4.4 g/dL (3.5-5.0); ALKALINE PHOSPHATASE 122 U/L (38-126); ANION GAP 9 (5-19); ASPARTATE AMINO TRANSFERASE 21 U/L (14-36); BILIRUBIN,DIRECT 0.2 mg/dL (0.0-0.4); BILIRUBIN,TOTAL 0.9 mg/dL (0.2-1.3); BLOOD UREA NITROGEN 10 mg/dL (7-20); CALCIUM 9.9 mg/dL (8.4-10.2); CARBON DIOXIDE 27 mmol/L (22-30); CHLORIDE 106 mmol/L (98-107); GLUCOSE 102 mg/dL (75-110); POTASSIUM 3.8 mmol/L (3.6-5.0); TOTAL PROTEIN 7.6 g/dL (6.3-8.2)
[2019-03-05] MEDS ORDERED: HYDROCODONE/ACETAMINOPHEN 5-325 MG TABLET PO ONE (11:37)
[2019-03-05] MEDS ORDERED: ONDANSETRON 4 MG TAB.RAPDIS PO ONE (11:37)
[2019-03-05 15:16] VITALS: BP 148/96
--- NOTE | 2019-03-05 16:20 | RADIOLOGY REPORT (SQ) ---
EXAM DESCRIPTION: U/S NON OB PEL TV W/DOPPLER COMPLETED DATE/TIME: 03/05/2019 1:26 pm REASON FOR STUDY: iud in place, worsening pain since 3 weeks, clotsPelvic pain COMPARISON: None. TECHNIQUE: Dynamic and static grayscale images acquired of the pelvis via transvaginal approach and recorded on PACS. Additional selected color Doppler and spectral images recorded. LIMITATIONS: None. FINDINGS: UTERUS: Contour normal. No mass. ENDOMETRIAL STRIPE: IUD is in place. CERVIX: No nabothian cysts. RIGHT OVARY AND DOPPLER: Normal size. No worrisome masses. Normal arterial vascular flow without evid ence for torsion. There is a small simple cysts largest diameter is 1.6 cm. LEFT OVARY AND DOPPLER: Normal size. No worrisome masses. Normal arterial vascular flow without evide nce for torsion. There is a small simple cyst. Largest diameter is 2.1 cm. FREE FLUID: None noted. OTHER: No other significant finding. MEASUREMENTS: UTERUS: 8.4 x 4.0 x 4.6 cm. ENDOMETRIAL STRIPE: Not applicable. RIGHT OVARY: 2.7 x 2.5 x 2.2 cm. LEFT OVARY: 3.5 x 2.4 x 1.7 cm. IMPRESSION: Small bilateral ovarian cysts. IUD is in place. No other significant findings. TECHNICAL DOCUMENTATION: JOB ID: [id number]- All Rights Reserved Rev-12/29 Reading location - IP/workstation name: [email or web address]
== END 2019-03-05 15:01 | disposition home or self-care (01) ==
LOC: ER 10:15
DX: N30.00 Acute cystitis without hematuria (principal); N83.201 Unspecified ovarian cyst, right side; N93.8 Other specified abnormal uterine and vaginal bleeding; R10.84 Generalized abdominal pain; R10.2 Pelvic and perineal pain; Z97.5 Presence of (intrauterine) contraceptive device
CPT/HCPCS: 99284; 36415; 85025; 81025; 80053; 81001; 76830; 93976; S0119

== ENCOUNTER → 2020-07-16 | Outpatient (CLI) | payer BC ==
--- NOTE | 2020-07-16 12:41 | ER RDC ASSESSMENT REPORT ---
Intake - In the Last 14 days Have you traveled outside [place]?: No Have you been in close contact with someone CONFIRMED: Yes Worked in Healthcare?: Yes - Symptoms Subjective Fever([place] feverish): No Chills: No Muscule Aches: No Runny Nose: No Sore Throat: Yes Cough (New or worsening chronic cough): Yes Shortness of breath: No Nausea or Vomiting: No Headache: Yes Abdominal Pain: No Diarrhea(3 or more loose stools in last 24 hours): No - Do you have any of the following Chronic lung disease: Asthma or emphysema or COPD: No Cystic Fibrosis: No Diabetes: No High Blood Pressure: No Cardiovascular Disease: No Chronic Kidney Disease: No Chronic Liver Disease: No Chronic blood disorder like Sickle Cell Disease: No Weak immune system due to disease or medication: No Neurologic condition that limits movement: No Developmental delay - Moderate to Severe: No Recent (within past 2 weeks) or current : No Morbid Obesity (>100 pounds over ideal weight): No - Objective Temperature: 99.6 F Pulse Rate: 98 Respiratory Rate: 16 Blood Pressure: 162/84 O2 Sat by Pulse Oximetry: 97 Objective: Given above, testing performed: flu,strep, covid Disposition: Home; Selfcare General - General Stated Complaint: sore throat, cough, headache Time Seen by Provider: 07/16/20 11:45 Mode of Arrival: Ambulatory Information source: Patient - [facility] Kyra morris - [facility] Notes: 34-year-old female presents to [facility] clinic for COVID-19 testing. Patient is employed over [employer] and has a contact with Covid positive individuals. Additionally patient had contact with Covid positive friend over [employer]. Onset of symptoms 07/14/2020. She is reporting sore throat, dry cough, and headache. Denies any fever or chills, change in taste or smell, muscle aches, runny nose, shortness of breath, or GI upset. - Related Data Allergies/Adverse Reactions: No Known Allergies Allergy (Verified 03/05/19 10:16) Past Medical History - General Information source: Patient - Social History Smoking Status: Never Smoker Family History: Reviewed & Not Pertinent - Past Medical History Cardiac Medical History: Reports: None Pulmonary Medical History: Reports: None EENT Medical History: Reports: None Neurological Medical History: Reports: None Endocrine Medical History: Reports: None Renal/ Medical History: Reports: None. Denies: Hx Peritoneal Dialysis Malignancy Medical History: Reports: None GI Medical History: Reports: None Musculoskeletal Medical History: Reports None Skin Medical History: Reports None Psychiatric Medical History: Reports: None Traumatic Medical History: Reports: None Infectious Medical History: Reports: None Past Surgical History: Reports: Hx Dilation and Curettage, Hx Gynecologic S urgery - D&C Physical Exam - General General appearance: Appears well, Alert In distress: None Notes: PHYSICAL EXAMINATION: GENERAL: Well-appearing and in no acute distress. HEAD: Atraumatic, normocephalic. EYES: sclera anicteric, conjunctiva are normal. ENT: nares patent. Moist mucous membranes. NECK: Normal range of motion, supple without lymphadenopathy. LUNGS: No increased work of breathing. Lung sounds CTAB and equal. No wheezes rales or rhonchi. HEART: Regular rate and rhythm without murmurs. ABDOMEN: Soft, nontender, normal bowel sounds, no guarding. EXTREMITIES: Normal range of motion, no pitting edema. No cyanosis. NEUROLOGICAL: A&O x 3. Normal speech. PSYCH: Normal mood, normal affect. SKIN: Warm, Dry, normal turgor, no rashes or lesions noted Patient Education/Counseling Counseling/Education: Patient presents with symptoms associated with possible Covid 19 infection. Patient does not have emergency worrying symptoms such as difficulty breathing, shortness of breath, chest pain, pressure, confusion or cyanosis. Patient appears suitable for discharge as vital signs are stable and patient is nontoxic in appearance. Patient was advised to follow-up with PCP as she has noted trend in elevated blood pressure and has a family history of hypertension. Good return precautions have been discussed with patient, patient verbalized understanding and is agreeable with discharge plan of care at this time. Guidance for worsening S/SX: As a person under investigation for Covid 19, the [place] department of Health and Human Services, division of public health advises you to adhere to the following guidance until your test results are reported to you. If your test result is positive, you will receive additional information from your provider and your local health department at that time. Remain at home until you are cleared by the health provider or public health authorities. Keep a log of visitors to your home, notify any visitors to your home of your isolation status. If you plan to move to a new address or leave the county, notify the local health department in your County. Call your doctor or seek care if you have an urgent medical need. Before s eeking medical care, call ahead to get instructions from the provider before arriving at the medical office clinic or hospital. Notify them that you are being tested for the virus that causes Covid 19 so that arrangements can be made, as necessary, to prevent transmission to others in the healthcare setting. Next, notify the local health department in your county. If a medical emergency arises and you need to call 911, inform the first responders that you are being tested for the virus that causes Covid 19. Next, notify the local health department in your county. RDC Discharge - Discharge Clinical Impression: Encounter for screening laboratory testing for COVID-19 virus Upper respiratory infection Qualifiers: URI type: unspecified URI Qualified Code(s): J06.9 - Acute upper respiratory infection, unspecified Condition: Good Disposition: Home; Selfcare
[2020-07-16 12:42] VITALS: BP 162/84
[2020-07-16 14:03] LABS: A TYPE INFLUENZA AG NEGATIVE (NEGATIVE); B INFLUENZA AG NEGATIVE (NEGATIVE)
== END ==
LOC: RDC 11:14
PROVIDERS: ATTEND Registered Nurse
DX: U07.1 COVID-19 (principal); J06.9 Acute upper respiratory infection, unspecified; R05 Cough; J02.9 Acute pharyngitis, unspecified; R51.9 Headache, unspecified
CPT/HCPCS: 87880; 87804; 99201; 99211; U0003; C9803; 87635